=== PATIENT | female | born 1970 | race American Indian/Alaskan Native ===

== ENCOUNTER 2017-11-28 12:07 | Emergency (ER) | payer SELFPAY ==
[2017-11-28 12:27] VITALS: BP 135/80
[2017-11-28 15:05] LABS: Bilirubin,Urine NEG (Negative); Blood,Urine NEG (Negative); Color,Urine Yellow (Yellow); Mucus,Urine FEW /HPF; Protein,Urine <15 mg/dL mg/dL (Negative); Urobilinogen,Urine < 2.0 mg/dL (<2.0)
[2017-11-28] MEDS ORDERED: TYLENOL ONE (15:11)
[2017-11-28] MEDS ORDERED: BACTRIM DS ONE (15:12)
[2017-11-28] MEDS ORDERED: BACTRIM DS PO ONE (15:12)
--- NOTE | 2017-11-28 15:13 | Emergency Department Report ---
ED General Adult HPI - General Chief complaint: Extremity Injury, Upper Stated complaint: LEFT HAND PAIN Time Seen by Provider: 11/28/17 15:12 Source: patient Mode of arrival: Ambulatory Limitations: No Limitations - History of Present Illness Initial comments: Patient is a 47-year-old female past medical history who presents with left wrist pain. Patient's left wrist pain is a 8/10. Nothing makes the pain better bending her wrist and lifting things makes her wrist pain worse as a sore type pain. Patient also presents with dysuria is regarding on for the last couple days. She states that for the dysuria of the pain as a 3 out of 10. She denies any vaginal discharge or vaginal bleeding she denies having any nausea or vomiting. - Related Data Previous Rx's Medication Instructions Recorded Last Taken Type Diclofenac Sodium [Voltaren] 100 gm TP Q6H PRN #1 gel..gram. 11/28/17 Unknown Rx Sulfamethoxazole/Trimethoprim 1 each PO BID #10 tablet 11/28/17 Unknown Rx [Bactrim DS TAB] Allergies Allergy/AdvReac Type Severity Reaction Status Date / Time No Known Allergies Allergy Unverified 11/28/17 12:21 ED Review of Systems ROS: Stated complaint: LEFT HAND PAIN Other details as noted in HPI Constitutional: denies: chills, fever Eyes: denies: eye pain, eye discharge, vision change ENT: denies: ear pain, throat pain Respiratory: denies: cough, shortness of breath, wheezing Cardiovascular: denies: chest pain, palpitations Endocrine: no symptoms reported Gastrointestinal: denies: abdominal pain, nausea, diarrhea Genitourinary: dysuria. denies: urgency, discharge Musculoskeletal: myalgia. denies: back pain, joint swelling, arthralgia Skin: denies: rash, lesions Neurological: denies: headache, weakness, paresthesias Psychiatric: denies: anxiety, depression Hematological/Lymphatic: denies: easy bleeding, easy bruising ED Past Medical Hx - Past Medical History Hx Diabetes: Yes - Surgical History Additional Surgical History: hernia repair - Social History Smoking Status: Current Every Day Smoker Substance Use Type: None - Medications Home Medications: Home Medications Medication Instructions Recorded Confirmed Last Taken Type Diclofenac Sodium [Voltaren] 100 gm TP Q6H PRN #1 gel..gram. 11/28/17 Unknown Rx Sulfamethoxazole/Trimethoprim 1 each PO BID #10 tablet 11/28/17 Unknown Rx [Bactrim DS TAB] ED Physical Exam - General Limitations: No Limitations General appearance: alert, in no apparent distress - Head Head exam: Present: atraumatic, normocephalic - Eye Eye exam: Present: normal appearance - ENT ENT exam: Present: mucous membranes moist - Neck Neck exam: Present: normal inspection - Respiratory Respiratory exam: Present: normal lung sounds bilaterally. Absent: respiratory distress - Cardiovascular Cardiovascular Exam: Present: regular rate, normal rhythm. Absent: systolic murmur, diastolic murmur, rubs, gallop - GI/Abdominal GI/Abdominal exam: Present: soft, normal bowel sounds - Extremities Exam Extremities exam: Present: normal inspection - Back Exam Back exam: Present: normal inspection - Neurological Exam Neurological exam: Present: alert, oriented X3 - Psychiatric Psychiatric exam: Present: normal affect, normal mood - Skin Skin exam: Present: warm, dry, intact, normal color. Absent: rash ED Course Vital Signs 11/28/17 12:22 Temperature 97.4 F L Pulse Rate 78 Respiratory 17 Rate Blood Pressure 135/80 O2 Sat by Pulse 100 Oximetry ED Medical Decision Making - Lab Data Lab Results 11/28/17 Range/Units 14:44 Urine Color Yellow (Yellow) Urine Turbidity Clear (Clear) Urine pH 5.0 (5.0-7.0) Ur Specific Newcomb 1.033 H (1.003-1.030) Urine Protein <15 mg/dl (Negative) mg/dL Urine Glucose (UA) >=500 (Negative) mg/dL Urine Ketones Tr (Negative) mg/dL Urine Blood Neg (Negative) Urine Nitrite Neg (Negative) Urine Bilirubin Neg (Negative) Urine Urobilinogen < 2.0 (<2.0) mg/dL Ur Leukocyte Esterase Neg (Negative) Urine WBC (Auto) 2.0 (0.0-6.0) /HPF Urine RBC (Auto) 2.0 (0.0-6.0) /HPF U Epithel Cells (Auto) 3.0 (0-13.0) /HPF Urine Mucus Few /HPF Urine HCG, Qual Negative (Negative) - Radiology Data Radiology results: report reviewed, image reviewed Left wrist x-ray: Shows no acute osseous injury - Medical Decision Making Chief medical diagnosis: Left wrist sprain Differential diagnosis Carpal tunnel, UTI I will get a urinalysis and plain films of her wrist. I will also give patient an antibiotic because she has pain when she urinates even though her urinalysis is unremarkable. Discussed outpatient followup with patient and patient agrees plan to be discharged additional verbal discharge instructions were given. Critical care attestation.: If time is entered above; I have spent that time in minutes in the direct care of this critically ill patient, excluding procedure time. ED Disposition Clinical Impression: Dysuria, Left wrist pain Disposition: TO HOME OR SELFCARE Is pt being admited?: No Does the pt Need Aspirin: No Condition: Stable Instructions: Tendinitis (ED), Wrist Sprain (ED) Prescriptions: Diclofenac Sodium [Voltaren] 100 gm TP Q6H PRN #1 gel..gram. PRN Reason: Pain Sulfamethoxazole/Trimethoprim [Bactrim DS TAB] 1 each PO BID #10 tablet Referrals: PAN CASILLAS MD [Staff Physician] - 3-5 Days
[2017-11-28 15:14] LABS: HCG Qualitative,Urine Negative (Negative)
[2017-11-28] MEDS ORDERED: TYLENOL PO ONE (15:14)
--- NOTE | 2017-11-28 15:44 | XRay Report ---
LEFT WRIST RADIOGRAPHS INDICATION: Left wrist pain. COMPARISON: None similar. FINDINGS: AP and lateral left wrist radiographs, 2 projections demonstrate intact carpal rows and also remainder imaged bones. Unremarkable soft tissues. CONCLUSION: Normal left wrist radiographs, as described. Thank you for the opportunity to participate in this patient's care.
== END 2017-11-28 16:23 | disposition home or self-care (01) ==
LOC: ED 12:07
DX: M25.532 Pain in left wrist (principal); R30.0 Dysuria
CPT/HCPCS: 81001; 81025

== ENCOUNTER 2017-12-07 11:29 | Emergency (ER) | payer SELFPAY ==
[2017-12-07 11:41] VITALS: BP 129/77
[2017-12-07 12:21] LABS: Basophils % (Auto) 0.3 % (0.0-1.8); Eosinophils # (Auto) 0.1 K/mm3 (0.0-0.4); Eosinophils % (Auto) 2.3 % (0.0-4.3); Hematocrit 40.1 % (30.3-42.9); Hemoglobin 13.2 gm/dl (10.1-14.3); Lymphocytes # (Auto) 2.1 K/mm3 (1.2-5.4); Lymphocytes % (Auto) 35.7 % (13.4-35.0); Mean Corpuscular HGB Conc 33 % (30-34); Mean Corpuscular Hemoglobin 28 pg (28-32); Mean Corpuscular Volume 84 fl (79-97); Monocytes # (Auto) 0.6 K/mm3 (0.0-0.8); Monocytes % (Auto) 9.9 % (0.0-7.3); Platelet Count 222 K/mm3 (140-440); Red Blood Count 4.79 M/mm3 (3.65-5.03); Red Cell Distribution Width 14.3 % (13.2-15.2)
[2017-12-07 12:50] LABS: Alanine Aminotransferase 8 units/L (7-56); Albumin 3.7 g/dL (3.9-5); BUN/Creatinine Ratio 23; Blood Urea Nitrogen 9 mg/dL (7-17); Hemolysis Index 44
[2017-12-07 14:08] LABS: Bilirubin,Urine NEG (Negative); Blood,Urine NEG (Negative); Color,Urine Yellow (Yellow); Mucus,Urine FEW /HPF; Protein,Urine <15 mg/dL mg/dL (Negative); Urobilinogen,Urine < 2.0 mg/dL (<2.0); WBC,Urine < 1.0 /HPF (0.0-6.0)
[2017-12-07 14:11] LABS: HCG Qualitative,Urine Negative (Negative)
[2017-12-07] MEDS ORDERED: ULTRAM PO ONE (22:39)
--- NOTE | 2017-12-07 23:23 | XRay Report ---
FINAL REPORT EXAM: XR SPINE CERVICAL 2-3V HISTORY: NECK PAIN TECHNIQUE: 3 views of the cervical spine PRIORS: None. FINDINGS: The vertebral bodies are normal in height. Vertebral alignment is normal. The disc spaces are well preserved. There is no evidence of fracture or subluxation. The soft tissues are unremarkable. IMPRESSION: Normal C-spine series.
[2017-12-07] MEDS ORDERED: NACL ONE (23:37)
--- NOTE | 2017-12-08 01:02 | Cat Scan Report ---
FINAL REPORT PROCEDURE: CT ABDOMEN PELVIS W CON TECHNIQUE: Computerized axial tomography of the abdomen and pelvis was performed after the IV injection of iodinated nonionic contrast. HISTORY: ABD PAIN, SEVERE H/O L. INGUINAL HERNIA COMPARISON: No prior studies are available for comparison. FINDINGS: Visualized lower thorax: There are bibasilar pulmonary infiltrates.. Liver: Normal size and attenuation. Spleen: Normal size and attenuation. Gallbladder and biliary system: Normal. Pancreas: Normal. Adrenals: Normal. Kidneys: Normal. GI tract: There is moderate stool in the colon. There is no obstruction, colitis or enteritis the appendix is normal.. Lymph nodes and mesentery: Normal. Vasculature: Normal. Bladder: Normal. Reproductive organs: Uterus is unremarkable. There is a 5 centimeters cyst in the left ovary.. Peritoneum: There is no ascites or free air, abscess or adenopathy.. Musculoskeletal structures: No significant abnormality. Other: None. IMPRESSION: There are bibasilar pulmonary infiltrates.. There is moderate stool in the colon. There is no obstruction, colitis or enteritis the appendix is normal.. Uterus is unremarkable. There is a 5 centimeters cyst in the left ovary.. There is no ascites or free air, abscess or adenopathy..
--- NOTE | 2017-12-08 01:39 | Emergency Department Report ---
HPI - General Chief Complaint: Abdominal Pain Time Seen by Provider: 12/07/17 22:38 - HPI HPI: Patient presents to ED with lower abdominal pain history of hernia. Patient denies any nausea, vomiting. Patient also complained of neck pain. States chronic has been going on for a couple weeks but worse today. Patient denies any alleviating or exacerbating factors. ED Past Medical Hx - Past Medical History Hx Diabetes: Yes - Surgical History Past Surgical History?: Yes Additional Surgical History: hernia repair - Social History Smoking Status: Current Every Day Smoker Substance Use Type: None - Medications Home Medications: Home Medications Medication Instructions Recorded Confirmed Last Taken Type Diclofenac Sodium [Voltaren] 100 gm TP Q6H PRN #1 gel..gram. 11/28/17 Unknown Rx Sulfamethoxazole/Trimethoprim 1 each PO BID #10 tablet 11/28/17 Unknown Rx [Bactrim DS TAB] Azithromycin [Zithromax] 250 mg PO DAILY #6 tablet 12/08/17 Unknown Rx Cyclobenzaprine [Flexeril] 10 mg PO TID PRN #14 tablet 12/08/17 Unknown Rx ED Review of Systems ROS: Stated complaint: HERNIA Other details as noted in HPI Comment: All other systems reviewed and negative Respiratory: cough Gastrointestinal: abdominal pain. denies: nausea, vomiting Physical Exam - Physical Exam Vital Signs: Vital Signs 12/07/17 11:35 Temperature 98.6 F Pulse Rate 84 Respiratory 16 Rate Blood Pressure 129/77 O2 Sat by Pulse 100 Oximetry Physical Exam: - Physical Exam Physical Exam: - General Limitations: No Limitations General appearance: alert, in no apparent distress. - Head Head exam: Present: atraumatic, normocephalic - Eye Eye exam: Present: normal appearance - ENT ENT exam: Present: mucous membranes moist - Neck Neck exam: Present: normal inspection - Respiratory Respiratory exam: Present: normal lung sounds bilaterally. Absent: respiratory distress - Cardiovascular Cardiovascular Exam: Present: normal rhythm, normal rate. Absent: systolic murmur, diastolic murmur, rubs, gallop - GI/Abdominal GI/Abdominal exam: Present: soft, normal bowel sounds, left inguinal hernia easily reducible. - Extremities Exam Extremities exam: Present: normal inspection - Back Exam Back exam: Present: normal inspection - Neurological Exam Neurological exam: Present: alert, oriented X3 - Psychiatric Psychiatric exam: normal affect and mood - Skin Skin exam: Present: warm, dry, intact, normal color. Absent: rash ED Course Vital Signs 12/07/17 11:35 Temperature 98.6 F Pulse Rate 84 Respiratory 16 Rate Blood Pressure 129/77 O2 Sat by Pulse 100 Oximetry ED Medical Decision Making - Lab Data Result diagrams: 12/07/17 11:56 12/07/17 11:56 Critical care attestation.: If time is entered above; I have spent that time in minutes in the direct care of this critically ill patient, excluding procedure time. ED Disposition Clinical Impression: Hernia, inguinal, left, Pulmonary infiltrates Disposition: DC-01 TO HOME OR SELFCARE Is pt being admited?: No Does the pt Need Aspirin: No Condition: Stable Instructions: Acute Bronchitis (ED), Cervical Sprain (ED), Abdominal Pain (ED) Prescriptions: Azithromycin [Zithromax] 250 mg PO DAILY #6 tablet Cyclobenzaprine [Flexeril] 10 mg PO TID PRN #14 tablet PRN Reason: Muscle Spasm Referrals: HAWA ROTH DO [Staff Physician] - 3-5 Days [facility], [Primary Care Provider] - 3-5 Days
== END 2017-12-08 02:07 | disposition home or self-care (01) ==
LOC: ED 11:29
DX: K40.90 Unilateral inguinal hernia, without obstruction or gangrene, not specified as recurrent (principal); R91.8 Other nonspecific abnormal finding of lung field; E11.9 Type 2 diabetes mellitus without complications; F17.200 Nicotine dependence, unspecified, uncomplicated
CPT/HCPCS: 36415; 72040; 74177; 80053; 81001; 81025; 85025; 99284; Q9967

== ENCOUNTER 2018-03-29 12:22 | Emergency (ER) | payer SELFPAY ==
--- NOTE | 2018-03-29 12:53 | Emergency Department Report ---
ED Syncope HPI - General Chief Complaint: Syncope Stated Complaint: SYNCOPE EPISODE Time Seen by Provider: 03/29/18 12:49 Source: patient, EMS Exam Limitations: no limitations - History of Present Illness Timing/Prior Episodes: no prior history Precipitating Factors: Positive: none Context: standing Loss of Consciousness: prolonged (minutes) Current Symptoms: back to normal - Related Data Allergies/Adverse Reactions: Allergies No Known Allergies Allergy (Unverified 11/28/17 12:21) Home Medications: Ambulatory Orders Diclofenac Sodium [Voltaren] 100 gm TP Q6H PRN #1 gel..gram. 11/28/17 Sulfamethoxazole/Trimethoprim [Bactrim DS TAB] 1 each PO BID #10 tablet Azithromycin [Zithromax] 250 mg PO DAILY #6 tablet 12/08/17 Cyclobenzaprine [Flexeril] 10 mg PO TID PRN #14 tablet 12/08/17 ED Review of Systems ROS: Stated complaint: SYNCOPE EPISODE Other details as noted in HPI Comment: All other systems reviewed and negative Constitutional: denies: chills, fever Eyes: denies: eye pain, eye discharge ENT: denies: ear pain, throat pain, dental pain Respiratory: denies: cough, orthopnea, shortness of breath Cardiovascular: denies: chest pain, palpitations Endocrine: no symptoms reported Gastrointestinal: denies: abdominal pain, nausea, vomiting, diarrhea Genitourinary: denies: urgency, dysuria, frequency Musculoskeletal: denies: back pain, joint swelling Skin: denies: rash, lesions Neurological: headache, weakness. denies: numbness, paresthesias Psychiatric: denies: anxiety, depression Hematological/Lymphatic: denies: easy bleeding, easy bruising ED Past Medical Hx - Past Medical History Hx Diabetes: Yes Hx COPD: Yes - Surgical History Additional Surgical History: hernia repair - Social History Smoking Status: Current Every Day Smoker Substance Use Type: Alcohol - Medications Home Medications: Home Medications Medication Instructions Recorded Confirmed Last Taken Type Diclofenac Sodium [Voltaren] 100 gm TP Q6H PRN #1 gel..gram. 11/28/17 Unknown Rx Sulfamethoxazole/Trimethoprim 1 each PO BID #10 tablet 11/28/17 Unknown Rx [Bactrim DS TAB] Azithromycin [Zithromax] 250 mg PO DAILY #6 tablet 12/08/17 Unknown Rx Cyclobenzaprine [Flexeril] 10 mg PO TID PRN #14 tablet 12/08/17 Unknown Rx ED Physical Exam - General Limitations: No Limitations General appearance: alert, in no apparent distress - Head Head exam: Present: atraumatic, normocephalic, normal inspection - Eye Eye exam: Present: normal appearance, PERRL, EOMI Pupils: Present: normal accommodation - ENT ENT exam: Present: normal exam, normal orophraynx, mucous membranes moist - Neck Neck exam: Present: normal inspection, full ROM. Absent: tenderness - Respiratory Respiratory exam: Present: normal lung sounds bilaterally. Absent: respiratory distress, wheezes, rales, rhonchi, stridor - Cardiovascular Cardiovascular Exam: Present: regular rate, normal rhythm, normal heart sounds - GI/Abdominal GI/Abdominal exam: Present: soft, normal bowel sounds. Absent: distended, tenderness, guarding, rebound, rigid - Extremities Exam Extremities exam: Present: normal inspection, full ROM, normal capillary refill - Back Exam Back exam: Present: normal inspection, full ROM. Absent: tenderness - Neurological Exam Neurological exam: Present: alert, oriented X3, CN II-XII intact - Psychiatric Psychiatric exam: Present: normal affect, normal mood - Skin Skin exam: Present: warm, dry, intact, normal color ED Course Vital Signs 03/29/18 12:36 Temperature 98.3 F Pulse Rate 76 Respiratory 18 Rate Blood Pressure 106/62 O2 Sat by Pulse 100 Oximetry - Reevaluation(s) Reevaluation #1: 03/29/18 15:28 Patient care was discussed with the hospitalist chief station engineer Dr. Silverman. He will admit the patient to the hospital for further evaluation and management. ED Medical Decision Making - Lab Data Result diagrams: 03/29/18 12:51 03/29/18 12:52 - EKG Data -: EKG Interpreted by Me EKG shows normal: sinus rhythm Rate: normal (73) - EKG Data When compared to previous EKG there are: previous EKG unavailable Interpretation: other (Q wave in V1 and V2. T wave inversion in the anterolateral leads. No STEMI. Prolonged QT.) - Radiology Data Radiology results: report reviewed, image reviewed - Medical Decision Making Syncope. Critical care attestation.: If time is entered above; I have spent that time in minutes in the direct care of this critically ill patient, excluding procedure time. ED Disposition Clinical Impression: Syncope and collapse, Acute hypokalemia, Prolonged Q-T interval on ECG Disposition: 09 OP ADMIT IP TO THIS HOSP Is pt being admited?: Yes Does the pt Need Aspirin: No Condition: Stable Instructions: Syncope (ED) Referrals: PRIMARY CARE,MD [Primary Care Provider] - 3-5 Days Time of Disposition: 15:15
[2018-03-29] MEDS ORDERED: NACL 0.9% 1000 ML 1,000 ML IV ONE ×2 (12:56→12:57)
[2018-03-29 13:00] LABS: Basophils # (Auto) 0.1 K/mm3 (0.0-0.1); Basophils % (Auto) 1.3 % (0.0-1.8); Eosinophils # (Auto) 0.1 K/mm3 (0.0-0.4); Eosinophils % (Auto) 1.3 % (0.0-4.3); Hematocrit 33.5 % (30.3-42.9); Hemoglobin 11.2 gm/dl (10.1-14.3); Lymphocytes # (Auto) 1.5 K/mm3 (1.2-5.4); Lymphocytes % (Auto) 14.9 % (13.4-35.0); Mean Corpuscular HGB Conc 34 % (30-34); Mean Corpuscular Hemoglobin 29 pg (28-32); Mean Corpuscular Volume 86 fl (79-97); Monocytes # (Auto) 0.8 K/mm3 (0.0-0.8); Platelet Count 239 K/mm3 (140-440); Red Blood Count 3.91 M/mm3 (3.65-5.03); Red Cell Distribution Width 13.6 % (13.2-15.2)
[2018-03-29 13:19] LABS: BUN/Creatinine Ratio 12; Blood Urea Nitrogen 6 mg/dL (7-17); Calcium 8.5 mg/dL (8.4-10.2); Hemolysis Index 6
[2018-03-29 13:44] LABS: INR 1.13 (0.87-1.13)
[2018-03-29 13:45] LABS: Partial Thromboplastin Time 27.7 Sec. (24.2-36.6)
[2018-03-29 13:53] LABS: Alanine Aminotransferase 6 units/L (7-56); Albumin 3.9 g/dL (3.9-5)
[2018-03-29 13:54] LABS: Bilirubin,Direct < 0.2 mg/dL (0-0.2)
[2018-03-29] MEDS ORDERED: K-DUR PO ONE (14:08)
--- NOTE | 2018-03-29 14:13 | History and Physical Report ---
Medications and Allergies Allergies Allergy/AdvReac Type Severity Reaction Status Date / Time No Known Allergies Allergy Unverified 11/28/17 12:21 Home Medications Medication Instructions Recorded Confirmed Last Taken Type Diclofenac Sodium [Voltaren] 100 gm TP Q6H PRN #1 gel..gram. 11/28/17 Unknown Rx Sulfamethoxazole/Trimethoprim 1 each PO BID #10 tablet 11/28/17 Unknown Rx [Bactrim DS TAB] Azithromycin [Zithromax] 250 mg PO DAILY #6 tablet 12/08/17 Unknown Rx Cyclobenzaprine [Flexeril] 10 mg PO TID PRN #14 tablet 12/08/17 Unknown Rx Exam - Constitutional Vitals: Temp Pulse Resp BP Pulse Ox 98.3 F 76 18 106/62 100 03/29/18 12:36 03/29/18 12:36 03/29/18 12:36 03/29/18 12:36 03/29/18 12:36 Results - Labs CBC & Chem 7: 03/29/18 12:51 03/29/18 12:52 Labs: Abnormal lab results 03/29/18 03/29/18 03/29/18 Range/Units 12:51 12:52 13:00 Hawkins % (Auto) 8.0 H (0.0-7.3) % Seg Neutrophils % 74.5 H (40.0-70.0) % PT (12.2-14.9) Sec. Potassium 2.7 L* (3.6-5.0) mmol/L BUN 6 L (7-17) mg/dL Creatinine 0.5 L (0.7-1.2) mg/dL Glucose 202 H (65-100) mg/dL ALT 6 L (7-56) units/L 03/29/18 Range/Units 13:00 Hawkins % (Auto) (0.0-7.3) % Seg Neutrophils % (40.0-70.0) % PT 15.1 H (12.2-14.9) Sec. Potassium (3.6-5.0) mmol/L BUN (7-17) mg/dL Creatinine (0.7-1.2) mg/dL Glucose (65-100) mg/dL ALT (7-56) units/L
--- NOTE | 2018-03-29 14:58 | Cat Scan Report ---
CT scan of head without IV contrast: History: Syncope. Findings: Ventricles are normal in size and midline in location. No evidence of acute ischemia, hemorrhage or mass. No extra-axial fluid collection. Normal brainstem and cerebellum. Normal sinuses and mastoid air cells. Impression: No acute intracranial abnormality.
--- NOTE | 2018-03-29 15:03 | Cat Scan Report ---
CT scan of cervical spine: History: Neck pain. Findings: Normal height of vertebral bodies and intervertebral disc. Normal articular surfaces. Spur identified at the anterior inferior aspect of the fifth cervical vertebral body with mild cervical spondylosis. Normal prevertebral soft tissue. Impression: Cervical spondylosis C5-C6. No evidence of acute fracture.
--- NOTE | 2018-03-29 15:17 | XRay Report ---
Single view chest: History: Syncope. Findings: A normal cardiomediastinal silhouette. Trachea is midline. No consolidation, pneumothorax or pleural effusion. Impression: No acute cardiopulmonary findings.
[2018-03-29 16:30] VITALS: BP 130/75
== END 2018-03-29 19:06 | disposition admitted as inpatient to this hospital (09) ==
LOC: ED 12:22
DX: R55 Syncope and collapse (principal); E87.6 Hypokalemia; I45.81 Long QT syndrome
CPT/HCPCS: 36415; 70450; 71045; 72125; 80048; 80074; 82550; 83735; 83880; 84484; 84703; 85025; 85379; 85610; 85730; 93005; 93010; 96360; 99285; G0480; J7030; 80320

== ENCOUNTER 2018-04-01 12:29 | Outpatient (CLI) | payer OTHER | END 2018-04-01 12:30 | disposition home or self-care (01) | LOC: PF 12:29 | PROVIDERS: ATTEND Internal Medicine | DX: Z02.71 Encounter for disability determination (principal); E11.9 Type 2 diabetes mellitus without complications; F32.9 Major depressive disorder, single episode, unspecified; M19.90 Unspecified osteoarthritis, unspecified site; F17.210 Nicotine dependence, cigarettes, uncomplicated; J44.9 Chronic obstructive pulmonary disease, unspecified | CPT/HCPCS: 94010; 94729 ==

== ENCOUNTER 2020-03-22 03:33 | Emergency (ER) | payer SELFPAY ==
[2020-03-22 03:39] VITALS: BP 137/92
--- NOTE | 2020-03-22 04:22 | Cat Scan Report ---
CT head without contrast INDICATION : Altered mental status. Headache. TECHNIQUE: Axial imaging performed from the skull apex through the skull base without the use of con trast. All CT examinations performed at this facility utilize dose modulation, iterative reconstruct ion or weight-based dosing, when appropriate, to reduce radiation dose to as low as reasonably achiev able. COMPARISON: None FINDINGS: No acute intracranial hemorrhage or parenchymal abnormality. Ventricles are normal in si ze and appear symmetric. Soft tissues including the orbits appear normal. No acute osseous abnorm ality. Sinuses and mastoid air cells are clear. IMPRESSION: No acute abnormality. Signer Name: Avelino Dominguez MD Signed: 03/22/2020 4:18 AM Workstation Name: [id number]
[2020-03-22 04:26] LABS: Basophils % (Auto) 0.4 % (0.0-1.8); Eosinophils # (Auto) 0.1 K/mm3 (0.0-0.4); Eosinophils % (Auto) 0.6 % (0.0-4.3); Hematocrit 40.2 % (30.3-42.9); Hemoglobin 13.8 gm/dl (10.1-14.3); Lymphocytes # (Auto) 2.1 K/mm3 (1.2-5.4); Lymphocytes % (Auto) 21.5 % (13.4-35.0); Mean Corpuscular HGB Conc 34 % (30-34); Mean Corpuscular Volume 84 fl (79-97); Monocytes # (Auto) 0.9 K/mm3 (0.0-0.8); Monocytes % (Auto) 8.9 % (0.0-7.3); Platelet Count 208 K/mm3 (140-440); Red Blood Count 4.81 M/mm3 (3.65-5.03); Red Cell Distribution Width 13.6 % (13.2-15.2)
[2020-03-22 04:44] LABS: BUN/Creatinine Ratio 30; Blood Urea Nitrogen 15 mg/dL (7-17); Calcium 9.5 mg/dL (8.4-10.2); Hemolysis Index 4; INR 1.02 (0.87-1.13)
[2020-03-22 04:46] LABS: Partial Thromboplastin Time 27.5 Sec. (24.2-36.6)
== END 2020-03-22 05:03 ==
LOC: ED 03:33
DX: R20.0 Anesthesia of skin (principal); Z53.21 Procedure and treatment not carried out due to patient leaving prior to being seen by health care provider
CPT/HCPCS: 36415; 70450; 80048; 82962; 84484; 85025; 85610; 85670; 85730; 93005